=== PATIENT | male | born 2000 | race Caucasian/White ===

== ENCOUNTER 2019-02-12 17:51 | Emergency (ER) | payer MEDICAID ==
--- NOTE | 2019-02-12 18:34 | EDM.PDOC ---
ED HPI GENERAL MEDICAL PROBLEM - General Chief Complaint: Neurological Problem Stated Complaint: [facility] Time Seen by Provider: 02/12/19 17:59 Source of Information: Reports: Patient, EMS, Other ([employer]) History Limitations: Reports: No Limitations - History of Present Illness INITIAL COMMENTS - FREE TEXT/NARRATIVE: The patient comes in by [facility] for a seizure. The patient was an [employer] doing orientation. He was sitting in a chair and looked to the side and then started seizing. He had a full body tonic clonic seizure. This lasted about 2 minutes. He did bite his tongue. He was not incontinent. He was post ictal for about 15 minutes. He did vomit. He would not let EMS start an IV or give meds. He has no history of seizures. He was up for about 24 hours. He flew here from [facility] and he had delays and cancelations. He also drank about 4 red bulls to stay awake. He has no other medical problems. He does have a headache. He has no other symptoms. Onset: Sudden Duration: Minutes: Location: Reports: Generalized Severity: Severe Improves with: Reports: None Worsens with: Reports: None Associated Symptoms: Reports: No Other Symptoms Headache Pain Score (Numeric/FACES): 9 - Related Data Allergies Allergy/AdvReac Type Severity Reaction Status Date / Time No Known Allergies Allergy Verified 02/12/19 17:58 Home Meds: Home Meds Divalproex Sodium [Depakote] 250 mg PO BEDTIME 02/12/19 [History] Sertraline HCl [Zoloft] 100 mg PO DAILY 02/12/19 [History] hydrOXYzine pamoate [Vistaril] 25 mg PO BEDTIME 02/12/19 [History] Past Medical History - Past Health History Medical/Surgical History: Denies Medical/Surgical History Social & Family History - Tobacco Use Smoking Status *Q: Current Every Day Smoker Years of Tobacco use: 5 Packs/Tins Daily: 0.5 - Recreational Drug Use Recreational Drug Use: No ED ROS GENERAL - Review of Systems Review Of Systems: See Below Constitutional: Reports: No Symptoms HEENT: Reports: Other (Tongue abrasion) Respiratory: Reports: No Symptoms Cardiovascular: Reports: No Symptoms Endocrine: Reports: No Symptoms GI/Abdominal: Reports: No Symptoms : Reports: No Symptoms Musculoskeletal: Reports: No Symptoms - Physical Exam Exam: See Below Exam Limited By: No Limitations General Appearance: Alert, No Apparent Distress Ears: Normal External Exam Nose: Normal Inspection Throat/Mouth: Other (abrasion to the left side of his tongue) Head Exam: Atraumatic, Normocephalic Neck: Supple, Non-Tender Respiratory/Chest: No Respiratory Distress, Lungs Clear, Normal Breath Sounds Cardiovascular: Regular Rate, Rhythm, No Edema, No Murmur GI/Abdominal: Soft, Non-Tender, No Organomegaly, No Mass Neuro Exam (Abbreviated): Alert, Oriented, No Motor/Sensory Deficits Course - Vital Signs Last Recorded V/S: Last Vital Signs Temp 98.7 F 02/12/19 17:55 Pulse 95 02/12/19 17:55 Resp 16 02/12/19 17:55 BP 126/90 02/12/19 17:55 Pulse Ox 95 02/12/19 17:55 - Re-Assessments/Exams Free Text/Narrative Re-Assessment/Exam: 02/12/19 18:34 The patient is alert and orientated and he feels good. He does not want anything done. He feels this is from being up for 24 hours. He would like to go to his room and rest. Departure - Departure Time of Disposition: 18:35 Disposition: Home, Self-Care 01 Condition: Good Clinical Impression: Seizure - Discharge Information *PRESCRIPTION DRUG MONITORING PROGRAM REVIEWED*: Not Applicable *COPY OF PRESCRIPTION DRUG MONITORING REPORT IN PATIENT NEAL: Not Applicable Referrals: Rosi Santiago PA-C [[facility]] - 1 Week Additional Instructions: Go home and rest. Drink plenty of fluids like water and gatorade. Do not drive for 6 months or until you are cleared by a neurologist. Do not take a bath or swim. You may have seizure and drown. Please return if you are worse. Take your medication as prescribed.
== END 2019-02-12 18:45 | disposition home or self-care (01) ==
LOC: JD.ED 17:51
DX: R56.9 Unspecified convulsions (principal); F17.210 Nicotine dependence, cigarettes, uncomplicated; Z79.899 Other long term (current) drug therapy
CPT/HCPCS: 99284